=== PATIENT | female | born 1960 | race Two or more races ===

== ENCOUNTER 2017-03-22 08:00 | Outpatient (CLI) | payer OTHER ==
[~2017-03-22 08:00] MED LIST: CIPRO500 MG PO; INTESTINEX1 CA1 PO; INTESTINEX680 MG PO; Mylicon 125MG PO; OXYC1TAB9 PO; PANTOPRAZOLE SO40 MG PO; POLY119PG PO; PROTONIX40 MG PO
== END 2017-03-22 09:28 | disposition home or self-care (01) ==
LOC: NUCLEAR 08:00
DX: M65.251 Calcific tendinitis, right thigh (principal)
CPT/HCPCS: 78306; A9503; 78315

== ENCOUNTER 2017-06-04 10:52 | Outpatient (CLI) | payer OTHER | END 2017-06-04 11:14 | disposition home or self-care (01) | LOC: RAD 10:52 | DX: J18.0 Bronchopneumonia, unspecified organism (principal) ==

== ENCOUNTER → 2017-07-15 | Outpatient (CLI) | payer OTHER | END | disposition home or self-care (01) | LOC: TOM 07:15 | DX: C56.1 Malignant neoplasm of right ovary (principal) ==

== ENCOUNTER 2017-08-02 12:52 | Outpatient (CLI) | payer OTHER | END 2017-08-02 13:15 | disposition home or self-care (01) | LOC: MRI 12:52 | DX: G89.3 Neoplasm related pain (acute) (chronic) (principal); C56.1 Malignant neoplasm of right ovary; E03.9 Hypothyroidism, unspecified | CPT/HCPCS: 72149 ==

== ENCOUNTER 2017-12-27 13:42 | Outpatient (CLI) | payer OTHER | END 2017-12-27 13:57 | disposition home or self-care (01) | LOC: MAMO-SONO 13:42 | DX: Z12.31 Encounter for screening mammogram for malignant neoplasm of breast (principal); C56.1 Malignant neoplasm of right ovary ==

== ENCOUNTER 2018-03-29 12:59 | Outpatient (CLI) | payer OTHER | END 2018-03-29 13:06 | disposition home or self-care (01) | LOC: SONOGRAMA 12:59 | DX: N63.24 Unspecified lump in the left breast, lower inner quadrant (principal); C56.1 Malignant neoplasm of right ovary ==

== ENCOUNTER 2018-10-13 07:19 | Outpatient (CLI) | payer OTHER | END 2018-10-13 10:01 | disposition home or self-care (01) | LOC: TOM 07:19 | DX: C56.1 Malignant neoplasm of right ovary (principal) ==

== ENCOUNTER 2018-11-01 12:54 | Outpatient (CLI) | payer OTHER | END 2018-11-01 13:01 | disposition home or self-care (01) | LOC: SONOGRAMA 12:54 → MAMO-SONO 13:15 | DX: E04.1 Nontoxic single thyroid nodule (principal) ==

== ENCOUNTER 2019-02-12 14:06 | Outpatient (CLI) | payer OTHER | END 2019-02-12 16:00 | disposition home or self-care (01) | LOC: NUCLEAR 14:06 | DX: M81.0 Age-related osteoporosis without current pathological fracture (principal); Z13.820 Encounter for screening for osteoporosis ==

== ENCOUNTER 2019-11-21 08:22 | Outpatient (CLI) | payer OTHER | END 2019-11-21 08:36 | disposition home or self-care (01) | LOC: TOM 08:22 | DX: C56.1 Malignant neoplasm of right ovary (principal) ==

== ENCOUNTER 2020-02-15 14:37 | Outpatient (CLI) | payer OTHER | END 2020-02-15 14:44 | disposition HB | LOC: SONOGRAMA 14:37 → MAMO-SONO 14:45 | PROVIDERS: ATTEND Internal Medicine Cardiovascular Disease | DX: N28.89 Other specified disorders of kidney and ureter (principal); N39.0 Urinary tract infection, site not specified ==

== ENCOUNTER 2020-04-11 13:26 | Outpatient (CLI) | payer OTHER | END 2020-04-11 14:09 | disposition home or self-care (01) | LOC: MAMO-SONO 13:26 | PROVIDERS: ATTEND Surgery | DX: Z12.31 Encounter for screening mammogram for malignant neoplasm of breast (principal); N60.11 Diffuse cystic mastopathy of right breast; N60.12 Diffuse cystic mastopathy of left breast ==

== ENCOUNTER 2020-04-28 13:14 | Outpatient (CLI) | payer OTHER | END 2020-04-28 13:35 | disposition home or self-care (01) | LOC: SONOGRAMA 13:14 | PROVIDERS: ATTEND Surgery | DX: C50.211 Malignant neoplasm of upper-inner quadrant of right female breast (principal); C50.411 Malignant neoplasm of upper-outer quadrant of right female breast; D24.2 Benign neoplasm of left breast; N60.11 Diffuse cystic mastopathy of right breast; N60.12 Diffuse cystic mastopathy of left breast ==

== ENCOUNTER 2020-06-04 23:02 | Emergency (ER) | payer OTHER ==
[~2020-06-04] VITALS: Ht 154.9 cm; Wt 49.0 kg
[2020-06-05] MEDS ORDERED: INTESTINEX680 M2 PO (07:02)
== END 2020-06-05 07:37 | disposition home or self-care (01) ==
LOC: ER 23:02
DX: K29.70 Gastritis, unspecified, without bleeding (principal); E86.0 Dehydration

== ENCOUNTER 2020-06-18 09:56 | Outpatient (CLI) | payer OTHER ==
[~2020-06-18 09:56] MED LIST changes: +INTESTINEX680 M2 PO
== END 2020-06-18 10:03 | disposition home or self-care (01) ==
LOC: SONOGRAMA 09:56 → MAMO-SONO 10:30
PROVIDERS: ATTEND Internal Medicine Cardiovascular Disease
DX: E03.8 Other specified hypothyroidism (principal); E03.4 Atrophy of thyroid (acquired)

== ENCOUNTER 2020-07-16 07:51 | Outpatient (CLI) | payer OTHER | END 2020-07-16 08:06 | disposition home or self-care (01) | LOC: SONOGRAMA 07:51 → MAMO-SONO 08:15 | PROVIDERS: ATTEND Internal Medicine | DX: K76.0 Fatty (change of) liver, not elsewhere classified (principal); R79.1 Abnormal coagulation profile ==

== ENCOUNTER → 2020-07-24 08:14 | Outpatient (CLI) | payer OTHER | END | disposition home or self-care (01) | LOC: NUCLEAR 08:00 | PROVIDERS: ATTEND Internal Medicine Cardiovascular Disease | DX: I25.10 Atherosclerotic heart disease of native coronary artery without angina pectoris (principal) ==

== ENCOUNTER 2020-08-04 09:10 | Outpatient (CLI) | payer OTHER | END 2020-08-04 09:27 | disposition home or self-care (01) | LOC: MAMO-SONO 09:10 | PROVIDERS: ATTEND Internal Medicine | DX: C50.111 Malignant neoplasm of central portion of right female breast (principal) ==

== ENCOUNTER 2020-10-10 06:16 | Day surgery (SDC) | payer OTHER | END 2020-10-10 16:10 | disposition home or self-care (01) | LOC: CIR.AMB 06:16 | PROVIDERS: ATTEND Surgery | DX: C50.411 Malignant neoplasm of upper-outer quadrant of right female breast (principal); D24.2 Benign neoplasm of left breast; Z20.822 Contact with and (suspected) exposure to COVID-19; Z90.11 Acquired absence of right breast and nipple ==

== ENCOUNTER 2020-11-05 08:22 | Outpatient (CLI) | payer OTHER | END 2020-11-05 08:40 | disposition home or self-care (01) | LOC: NUCLEAR 08:22 | PROVIDERS: ATTEND Internal Medicine Cardiovascular Disease | DX: R07.89 Other chest pain (principal) ==

== ENCOUNTER → 2020-11-17 15:00 | Outpatient (CLI) | payer OTHER | END | disposition home or self-care (01) | LOC: PPH VACUNA 15:00 | DX: Z23 Encounter for immunization (principal) ==

== ENCOUNTER 2020-12-03 10:53 | Outpatient (CLI) | payer OTHER | END 2020-12-03 11:04 | disposition home or self-care (01) | LOC: SONOGRAMA 10:53 | PROVIDERS: ATTEND Internal Medicine Cardiovascular Disease | DX: E04.2 Nontoxic multinodular goiter (principal) ==

== ENCOUNTER 2021-01-01 16:54 | Outpatient (CLI) | payer OTHER | END 2021-01-01 16:59 | disposition home or self-care (01) | LOC: LAB 16:54 | PROVIDERS: ATTEND Radiology Diagnostic Radiology | DX: C50.011 Malignant neoplasm of nipple and areola, right female breast (principal) ==

== ENCOUNTER 2021-01-05 07:06 | Outpatient (CLI) | payer OTHER | END 2021-01-05 07:17 | disposition home or self-care (01) | LOC: TOM 07:06 | PROVIDERS: ATTEND Internal Medicine | DX: C56.9 Malignant neoplasm of unspecified ovary (principal); E04.1 Nontoxic single thyroid nodule ==

== ENCOUNTER → 2021-01-27 | Outpatient (CLI) | payer OTHER | END | disposition home or self-care (01) | LOC: NUCLEAR 08:00 | PROVIDERS: ATTEND Internal Medicine Cardiovascular Disease | DX: R07.89 Other chest pain (principal) ==

== ENCOUNTER → 2021-02-27 14:00 | Outpatient (CLI) | payer OTHER | END | disposition home or self-care (01) | LOC: NUCLEAR 02-18 13:15 | PROVIDERS: ATTEND Obstetrics & Gynecology | DX: M81.0 Age-related osteoporosis without current pathological fracture (principal) ==

== ENCOUNTER 2021-04-13 07:33 | Outpatient (CLI) | payer OTHER | END 2021-04-13 07:58 | disposition home or self-care (01) | LOC: MAMO-SONO 07:33 | PROVIDERS: ATTEND Surgery | DX: N60.11 Diffuse cystic mastopathy of right breast (principal); N60.12 Diffuse cystic mastopathy of left breast; C50.411 Malignant neoplasm of upper-outer quadrant of right female breast ==

== ENCOUNTER 2021-04-27 12:30 | Outpatient (CLI) | payer OTHER | END 2021-04-27 12:46 | disposition home or self-care (01) | LOC: SONOGRAMA 12:30 | PROVIDERS: ATTEND Surgery | DX: N60.11 Diffuse cystic mastopathy of right breast (principal); N60.12 Diffuse cystic mastopathy of left breast ==

== ENCOUNTER → 2021-05-08 | Outpatient (CLI) | payer OTHER | END | disposition home or self-care (01) | LOC: NUCLEAR 08:40 | PROVIDERS: ATTEND Internal Medicine Cardiovascular Disease | DX: I50.9 Heart failure, unspecified (principal) ==

== ENCOUNTER 2021-07-31 08:00 | Outpatient (CLI) | payer OTHER | END 2021-07-31 08:30 | disposition home or self-care (01) | LOC: PPH VACUNA 08:00 | PROVIDERS: ATTEND Emergency Medicine Pediatric Emergency Medicine | DX: Z23 Encounter for immunization (principal); Z71.85 Encounter for immunization safety counseling ==

== ENCOUNTER → 2021-09-25 11:50 | Outpatient (CLI) | payer OTHER | END | disposition home or self-care (01) | LOC: SONOGRAMA 11:50 | PROVIDERS: ATTEND Surgery | DX: N60.11 Diffuse cystic mastopathy of right breast (principal); N60.12 Diffuse cystic mastopathy of left breast ==

== ENCOUNTER 2022-01-11 07:33 | Outpatient (CLI) | payer OTHER | END 2022-01-11 07:49 | disposition home or self-care (01) | LOC: TOM 07:33 | PROVIDERS: ATTEND Internal Medicine | DX: C56.9 Malignant neoplasm of unspecified ovary (principal) ==

== ENCOUNTER 2022-03-02 08:00 | Outpatient (CLI) | payer OTHER | END 2022-03-02 08:10 | disposition home or self-care (01) | LOC: PPH VACUNA 08:00 | PROVIDERS: ATTEND Emergency Medicine Pediatric Emergency Medicine | DX: Z23 Encounter for immunization (principal) ==

== ENCOUNTER 2022-03-02 08:00 | Outpatient (CLI) | payer OTHER | END 2022-03-02 08:10 | disposition home or self-care (01) | LOC: PPH VACUNA 08:00 | PROVIDERS: ATTEND Emergency Medicine Pediatric Emergency Medicine | DX: Z23 Encounter for immunization (principal) ==

== ENCOUNTER 2022-04-15 07:28 | Outpatient (CLI) | payer OTHER | END 2022-04-15 07:38 | disposition home or self-care (01) | LOC: MAMO-SONO 07:28 | PROVIDERS: ATTEND Surgery | DX: C50.411 Malignant neoplasm of upper-outer quadrant of right female breast (principal); N60.11 Diffuse cystic mastopathy of right breast; N60.12 Diffuse cystic mastopathy of left breast ==

== ENCOUNTER 2022-04-23 08:00 | Outpatient (CLI) | payer OTHER | END 2022-04-23 08:16 | disposition home or self-care (01) | LOC: SONOGRAMA 08:00 | PROVIDERS: ATTEND Internal Medicine Cardiovascular Disease | DX: E22.2 Syndrome of inappropriate secretion of antidiuretic hormone (principal); I10 Essential (primary) hypertension ==

== ENCOUNTER 2022-05-18 14:58 | Outpatient (CLI) | payer OTHER | END 2022-05-18 15:12 | disposition home or self-care (01) | LOC: SONOGRAMA 14:58 | PROVIDERS: ATTEND Surgery | DX: N60.11 Diffuse cystic mastopathy of right breast (principal); N60.12 Diffuse cystic mastopathy of left breast ==

== ENCOUNTER 2022-09-27 11:33 | Outpatient (CLI) | payer OTHER | END 2022-09-27 11:42 | disposition home or self-care (01) | LOC: RAD 11:33 | PROVIDERS: ATTEND Physical Medicine & Rehabilitation | DX: M54.2 Cervicalgia (principal); M54.59 Other low back pain ==

== ENCOUNTER 2022-10-26 08:26 | Outpatient (CLI) | payer OTHER | END 2022-10-26 08:34 | disposition home or self-care (01) | LOC: SONOGRAMA 08:26 | PROVIDERS: ATTEND Surgery | DX: N60.11 Diffuse cystic mastopathy of right breast (principal); N60.12 Diffuse cystic mastopathy of left breast ==

== ENCOUNTER 2023-03-15 12:57 | Outpatient (CLI) | payer OTHER | END 2023-03-15 13:04 | disposition home or self-care (01) | LOC: NUCLEAR 12:57 | PROVIDERS: ATTEND Obstetrics & Gynecology | DX: Z13.820 Encounter for screening for osteoporosis (principal); M85.80 Other specified disorders of bone density and structure, unspecified site; M81.0 Age-related osteoporosis without current pathological fracture ==

== ENCOUNTER 2023-04-18 07:29 | Outpatient (CLI) | payer OTHER | END 2023-04-18 07:31 | disposition home or self-care (01) | LOC: MAMO-SONO 07:29 | PROVIDERS: ATTEND Surgery | DX: C50.411 Malignant neoplasm of upper-outer quadrant of right female breast (principal); N60.11 Diffuse cystic mastopathy of right breast; N60.12 Diffuse cystic mastopathy of left breast ==

== ENCOUNTER 2023-09-27 16:01 | Outpatient (CLI) | payer OTHER | END 2023-09-27 16:02 | disposition home or self-care (01) | LOC: RAD 16:01 | DX: R05.2 Subacute cough (principal); J90 Pleural effusion, not elsewhere classified ==

== ENCOUNTER 2023-12-26 15:08 | Outpatient (CLI) | payer OTHER | END 2023-12-26 15:22 | disposition home or self-care (01) | LOC: RAD 15:08 | DX: J84.10 Pulmonary fibrosis, unspecified (principal) ==

== ENCOUNTER 2024-03-15 07:00 | Outpatient (CLI) | payer OTHER | END 2024-03-15 07:10 | disposition home or self-care (01) | LOC: SONOGRAMA 07:00 | PROVIDERS: ATTEND Internal Medicine Gastroenterology | DX: K80.20 Calculus of gallbladder without cholecystitis without obstruction (principal) ==

== ENCOUNTER 2024-04-26 07:15 | Outpatient (CLI) | payer OTHER | END 2024-04-26 07:27 | disposition home or self-care (01) | LOC: MAMO-SONO 07:15 | PROVIDERS: ATTEND Surgery | DX: N60.11 Diffuse cystic mastopathy of right breast (principal); N60.12 Diffuse cystic mastopathy of left breast; C50.411 Malignant neoplasm of upper-outer quadrant of right female breast ==

== ENCOUNTER 2024-07-24 08:37 | Outpatient (CLI) | payer OTHER | END 2024-07-24 08:47 | disposition home or self-care (01) | LOC: RAD 08:37 | PROVIDERS: ATTEND Physical Medicine & Rehabilitation | DX: M17.11 Unilateral primary osteoarthritis, right knee (principal); M17.12 Unilateral primary osteoarthritis, left knee ==

== ENCOUNTER 2024-09-20 07:05 | Outpatient (CLI) | payer OTHER | END 2024-09-20 07:08 | disposition home or self-care (01) | LOC: SONOGRAMA 07:05 | PROVIDERS: ATTEND Internal Medicine Gastroenterology | DX: K80.20 Calculus of gallbladder without cholecystitis without obstruction (principal) ==